=== PATIENT | male | born 1955 | race Caucasian/White ===

== ENCOUNTER 2016-08-17 08:43 | Emergency (ER) | payer BC ==
[2016-08-17] MEDS ORDERED: Ketorolac 60 MG/2 ML SDV IM ONE (09:22)
--- NOTE | 2016-08-17 09:25 | EDM.PDOC ---
ED HPI GENERAL MEDICAL PROBLEM - General Chief Complaint: Chest Pain Stated Complaint: CHEST PAIN Time Seen by Provider: 08/17/16 09:16 Source of Information: Reports: Patient, RN Notes Reviewed History Limitations: Reports: No Limitations - History of Present Illness INITIAL COMMENTS - FREE TEXT/NARRATIVE: 60-year-old gentleman presents emergency department day complaint of chest pain , he has no known history of coronary artery disease, states the pain started last evening woke him up from sleep was still persistent this morning rates the pain 8 out of 10, when he rests and is not exerting himself pain is 5 out of 10 but exertion and position cause it to get worse the pain is exacerbated by deep breath, denies any shortness of breath no nausea or vomiting no diaphoresis he has been cutting trees Left Chest Pain Score (Numeric/FACES): 8 - Related Data Allergies Allergy/AdvReac Type Severity Reaction Status Date / Time No Known Allergies Allergy Verified 08/17/16 08:57 Home Meds: Home Meds *Simvastatin 08/17/16 [History] *Spyriva 08/17/16 [History] *Symbicort 08/17/16 [History] *Synthroid 08/17/16 [History] *Vicodin 08/17/16 [History] Past Medical History Cardiovascular History: Reports: Hypertension Respiratory History: Reports: COPD Musculoskeletal History: Reports: Back Pain, Chronic Endocrine/Metabolic History: Reports: Hypothyroidism - Infectious Disease History Infectious Disease History: Reports: Measles, Mumps - Past Surgical History Other Musculoskeletal Surgeries/Procedures:: "SPINAL DETERIORATION" Social & Family History - Tobacco Use Smoking Status *Q: Current Every Day Smoker Years of Tobacco use: 52 Packs/Tins Daily: 1 - Caffeine Use Caffeine Use: Reports: Coffee, Soda - Recreational Drug Use Recreational Drug Use: No ED ROS GENERAL - Review of Systems Review Of Systems: See Below Constitutional: Denies: Fever, Chills, Diaphoresis HEENT: Reports: No Symptoms Respiratory: Reports: Cough, Sputum. Denies: Shortness of Breath Cardiovascular: Reports: Chest Pain. Denies: Dyspnea on Exertion GI/Abdominal: Reports: No Symptoms : Reports: No Symptoms Musculoskeletal: Reports: No Symptoms Skin: Reports: No Symptoms Neurological: Reports: No Symptoms ED EXAM, GENERAL - Physical Exam Exam: See Below Free Text/Narrative:: General: Male, mild discomfort secondary to pain, alert and oriented x3 HEENT: head is atraumatic normocephalic, eyes pupils equal round reactive to light, sclera clear no conjunctivitis appreciated. Ears tympanic membranes clear and deal landmarks and light reflex are present bilaterally canals are clear. Nose no septal deviation, nares are clear, no blood present. Mouth mucosa is moist and pink no erythema or exudate noted in soft palate, tongue is midline uvula is midline, dentition is intact. Neck: Supple no thyromegaly no tracheal deviation. Nodes: Cervical nodes subclavicular nodes nontender no palpable lymphadenopathy noted. Lungs: Breath sounds are distant on appreciate any adventitious noises CV: Regular rate and rhythm S1 and S2 appreciated no murmurs rubs or gallops noted. He does have chest wall tenderness point tenderness midclavicular line T6 level Abdomen: Soft, nontender, no palpable masses or organomegaly appreciated, no distention no guarding bowel sounds are present,. Neuro: Cranial nerves II through XII grossly intact Skin: Warm and dry, intact Extremities: No lower extremity edema appreciated, pedal pulse is +2. Course - Vital Signs Last Recorded V/S: Last Vital Signs Temp 97.3 F 08/17/16 09:50 Pulse 77 08/17/16 09:50 Resp 16 08/17/16 09:50 BP 117/83 08/17/16 09:50 Pulse Ox 95 08/17/16 09:50 - Orders/Labs/Meds Orders: Active Orders 24 hr Category Date Time Status Cardiac Monitoring [RC] .As Directed Care 08/17/16 09:21 Active EKG Documentation Completion [RC] ASDIRECTED Care 08/17/16 09:22 Active Chest 2V [CR] Stat Exams 08/17/16 09:22 Taken EKG 12 Lead [EK] Stat Ther 08/17/16 09:22 Ordered Labs: Laboratory Tests 08/17/16 08/17/16 08/17/16 Range/Units 09:26 09:26 09:26 WBC 14.8 H (4.5-11.0) K/uL RBC 4.58 (4.30-5.90) M/uL Hgb 14.5 (12.0-15.0) g/dL Hct 44.1 (40.0-54.0) % MCV 96 (80-98) fL MCH 32 H (27-31) pg MCHC 33 (32-36) % Plt Count 275 (150-400) K/uL Neut % (Auto) 72 H (36-66) % Lymph % (Auto) 14 L (24-44) % [place] % (Auto) 10 H (2-6) % Eos % (Auto) 3 (2-4) % Baso % (Auto) 1 (0-1) % D-Dimer, Quantitative 335 (0.0-400.0) ng/mL Sodium 141 (140-148) mmol/L Potassium 4.3 (3.6-5.2) mmol/L Chloride 105 (100-108) mmol/L Carbon Dioxide 31 (21-32) mmol/L Anion Gap 5.3 (5.0-14.0) mmol/L BUN 15 (7-18) mg/dL Creatinine 0.9 (0.8-1.3) mg/dL Est Cr Clr Drug Dosing 86.75 mL/min Estimated GFR (MDRD) > 60 (>60) Glucose 87 (74-106) mg/dL Calcium 8.7 (8.5-10.1) mg/dL Total Bilirubin 0.5 (0.2-1.0) mg/dL AST 35 (15-37) U/L ALT 39 (12-78) U/L Alkaline Phosphatase 55 (46-116) U/L CK-MB (CK-2) 4.5 H (0-3.6) mg/mL Troponin I < 0.017 (0.000-0.056) ng/mL Total Protein 6.7 (6.4-8.2) g/dL Albumin 3.5 (3.4-5.0) g/dL Globulin 3.2 (2.3-3.5) g/dL Albumin/Globulin Ratio 1.1 L (1.2-2.2) Meds: Medications Discontinued Medications Generic Name Dose Route Start Last Admin Trade Name Agustinq PRN Reason Stop Dose Admin Ketorolac Tromethamine 60 mg 08/17/16 09:22 08/17/16 09:31 Toradol IM 08/17/16 09:23 60 mg ONETIME ONE Administration Departure - Departure Time of Disposition: 10:12 Disposition: Home, Self-Care 01 Condition: Good Clinical Impression: Chest wall pain Forms: ED Department Discharge Additional Instructions: Continue to use nonsteroidal anti-inflammatories as needed for chest wall pain such as Aleve, naproxen, ibuprofen, Please followup with your primary care provider in 3-5 days if not better, please call return to the emergency department with worsening of symptoms. - My Orders Last 24 Hours: My Active Orders 08/17/16 09:21 Cardiac Monitoring [RC] .As Directed 08/17/16 09:22 EKG Documentation Completion [RC] ASDIRECTED Chest 2V [CR] Stat EKG 12 Lead [EK] Stat - Assessment/Plan Last 24 Hours: My Active Orders 08/17/16 09:21 Cardiac Monitoring [RC] .As Directed 08/17/16 09:22 EKG Documentation Completion [RC] ASDIRECTED Chest 2V [CR] Stat EKG 12 Lead [EK] Stat Plan: Assessment Acuity = acute Site and laterality = chest wall pain, complicated in a patient with known history of hypertension Etiology = probably secondary to lifting injury Manifestations = none Location of injury = Home Lab values = CBC reveals a white count elevated at 14.8 consistent leukocytosis , d-dimer is normal at 335, troponin is negative, CMP within normal limits, chest x-ray I did review films myself I cannot appreciate any acute process, the official read from radiology is pending, EKG reveals a sinus rhythm is no ST changes Plan I did review lab work, chest x-ray, EKG results with him, he had good relief from the Toradol injection provided, he is going continue with nonsteroidal anti -inflammatories follow-up with primary care in 3-5 days if no improvement Patient was in agreement with the plan all questions were answered, they were instructed to return to the emergency department or call for worsening symptoms. This note was dictated using [employer] voice recognition software please call with any questions.
[2016-08-17 09:51] VITALS: BP 117/83
--- NOTE | 2016-08-17 13:57 | CR ---
Chest 2V INDICATION: Chest Pain FINDINGS: Blunting of the left costophrenic angle could be due to a small amount of pleural fluid or pleural thickening. Mild hyperinflation. Minimal bibasilar scarring or atelectasis. No focal consol idation. Old right fifth rib fracture.
== END 2016-08-17 10:58 | disposition home or self-care (01) ==
LOC: JP.ED 08:43
DX: R07.89 Other chest pain (principal); I10 Essential (primary) hypertension; E03.9 Hypothyroidism, unspecified; F17.210 Nicotine dependence, cigarettes, uncomplicated; Z98.890 Other specified postprocedural states
CPT/HCPCS: 36415; 71020; 80053; 82553; 84484; 85025; 85379; 93005; 96372; 99285; J1885